=== PATIENT | male | born 1945 | race African-American/Black ===

== ENCOUNTER → 2017-01-20 | Outpatient (CLI) | payer MEDICARE, OTHER ==
[2017-01-20 09:49] LABS: BASOPHIL# 0.1 X10e3 (0-0.3); BASOPHIL% 1.5 % (0-2.5); EOSINOPHIL# 0.1 X10e3 (0-0.7); EOSINOPHIL% 0.9 % (0.0-7.0); HEMATOCRIT 42.6 % (38.0-50.0); LYMPHOCYTE# 1.9 X10e3 (1.0-3.5); MEAN CELL VOLUME 88.5 FL (83-96); MEAN CORPUSCULAR HEMOGLOBIN 29.1 PG (28-34); MEAN CORPUSCULAR HGB CONC 32.9 g/dL (30-36); MEAN PLATELET VOLUME 9.6 FL (6.5-11.5); MONOCYTE# 0.8 X10e3 (0-1.0); MONOCYTE% 10.7 % (3.0-12.0); NEUTROPHIL# 4.2 X10e3 (1.5-7.1); NEUTROPHIL% 59.9 % (40-75); PLATELET COUNT 187 X10e3 (140-420); RED BLOOD COUNT 4.81 X10e (3.90-5.60); RED CELL DISTRIBUTION WIDTH 13.4 % (11.0-15.5); WHITE BLOOD COUNT 7.1 X10e3 (4.0-10.5)
[2017-01-20 09:58] LABS: DIFF IND NO
[2017-01-20 11:22] LABS: FOLATE (FOLIC ACID) 20.4 ng/mL (>5.8)
[2017-01-20 11:29] LABS: ALBUMIN SERUM 3.8 g/dL (3.5-5.0); BILIRUBIN,TOTAL 0.7 mg/dL (0.2-2.0); CALCIUM SERUM 9.6 mg/dL (8.4-10.2); GLOM FILT RATE Estimated 88.6 mL/min (>60); POTASSIUM 3.5 mmol/L (3.5-5.1); PROTEIN TOTAL SERUM 7.8 g/dL (6.0-8.3)
== END | disposition home or self-care (01) ==
LOC: CLAB 09:17
PROVIDERS: Nurse Practitioner
DX: E11.9 Type 2 diabetes mellitus without complications (principal); I11.0 Hypertensive heart disease with heart failure; I50.22 Chronic systolic (congestive) heart failure; K59.00 Constipation, unspecified
CPT/HCPCS: 36415; 80053; 80061; 82043; 82607; 82746; 83036; 84443; 85025

== ENCOUNTER → 2017-01-28 | Outpatient (CLI) | payer MEDICARE, OTHER ==
--- NOTE | ~2017-01-28 | MR113 ---
[facility] A Service of [facility] & [facility] RADIOLOGY TEXT RESULTS PATIENT: RACHANA CHUN LOCATION: [facility] : 49 UNIT #: [id number] AGE: [address]: Bindu Avitia MD SEX: M ORDER DR: [id number] [facility] [address] [facility] [address] [place], [place] [address] [id number] O MR#: [id number] #: [id number] NAME: RACHANA CHUN : 1945 SEX: M STUDY DATE/TIME: 01/28/2017 9:49 UNIT: [facility] ROOM: STUDY DESCRIPTION: MR Lumbar Wo Contrast Attending Physician: Bindu Avitia M.D. Referring Physician: Bindu Avitia M.D. Ordering Physician: Bindu Avitia M.D. Primary Care Physician: Bindu Avitia M.D. MRI CENTER REPORT This report is preliminary unless electronic signature is present. EXAM MR of the lumbar spine without contras.t HISTORY 71-year-old male with chronic low back pain for over 8 years, but does not complain of leg pain and numbness. No specific injury. FINDINGS Multiplanar multiecho imaging was performed of the lumbar spine utilizing a high field magnet and dedicated protocol. Normal spinal alignment. Lumbar vertebral marrow signal remarkable for T1 and T2 hyperintensity within the L4 vertebral body may represent underlying hemangioma. Normal termination of the conus. At L1-2 the disc space is maintained. No spinal or foraminal stenosis. At L2-3 there is degenerative disc changes with disc desiccation and disc space narrowing. No significant spinal or foraminal stenosis. At L3-4 mild disc space narrowing and disc desiccation, but no significant spinal or foraminal stenosis. Mild L3-4 facet hypertrophy. At L4-5 there is abnormal signal along the posterior disc margin centrally and to the right of midline, measuring about 8 mm in length. This is compatible with a small annular tear or fissure. This can be a source of back pain in the absence of radicular symptoms. There is mild circumferential disc bulging with minimal effacement of the thecal sac and mild narrowing of the foramina, right greater than left. At L5-S1 the disc space is maintained. No herniation. No spinal or foraminal stenosis. Posterior elements unremarkable. The visualized SI joints appear normal. Paravertebral soft tissues unremarkable. [facility] A Service of [facility] RADIOLOGY TEXT RESULTS PATIENT: RACHANA CHUN LOCATION: [facility] : 47 UNIT #: [id number] AGE: [address]: Bindu Avitia MD SEX: M ORDER DR: IMPRESSION Mild multilevel degenerative disc changes, most pronounced L2-3 and L4-5. At L4-5 there is a right paracentral annular tear or fissure which can be a potential source of back pain in the absence of radicular symptoms. No focal disc herniations or protrusions are identified and no focal nerve root impingement seen. Please see above for level by level details. Dictated by... Marck Faulkner M.D. THIS IS AN ELECTRONICALLY VERIFIED REPORT Marck Faulkner M.D. at 01/31/2017 5:27 PM SILVERIO/ashtyn TD: 01/31/2017 15:27 JOB #: [id number] MRI CENTER REPORT Page 1 of 1 COPY
== END | disposition home or self-care (01) ==
LOC: CMRI 08:56
DX: M47.26 Other spondylosis with radiculopathy, lumbar region (principal)
CPT/HCPCS: 72148